=== PATIENT | female | born 1950 | race Caucasian/White ===

== ENCOUNTER 2017-02-10 07:55 | Day surgery (SDC) | payer MEDICARE, BC ==
[~2017-02-10 07:55] MED LIST: LIDOCAINE HCL 1% MPF SOL ONE; PROPOFOL 500 MG/50 ML EMU IV ONE
[2017-02-10 08:20] VITALS: TEMP 98.6
[2017-02-10 10:08] VITALS: O2SAT 99
[2017-02-10 10:19] VITALS: RESP 20
[2017-02-10 10:54] VITALS: BP 148/49; PULSE 65
== END 2017-02-10 11:05 | disposition home or self-care (01) | DRG 951 ==
LOC: SURG 07:55
PROVIDERS: ATTEND Surgery
DX: Z12.11 Encounter for screening for malignant neoplasm of colon (principal)
CPT/HCPCS: J2001; J2704